=== PATIENT | male | born 1930 | race Caucasian/White ===

== ENCOUNTER 2017-02-11 12:48 | Day surgery (SDC) | payer BC ==
--- NOTE | ~2017-02-11 | CN ---
Consultation Report [id number] [facility] [place]. [address] NAME: SHALOM NORIEGA : 32 STATUS : [facility]#: [id number] AGE: 86 ADM/REG DATE : 02/11/17 MR#: [id number] REPORT SERV DATE: 02/16/17 DICTATED BY: ESAU MCINTYRE DATE: 02/16/17 REPORT STATUS : Draft TRANSCRIBED BY: MODL DATE: 02/16/17 CONSULTATION DATE OF CONSULTATION: Dear Dr. Camacho and Dr. Webb: Thank you for requesting my opinion regarding FDG avid mediastinal lymphadenopathy for Mr. Shalom Noriega. HISTORY OF PRESENT ILLNESS: Mr. Noriega is a pleasant 86-year-old gentleman, with a significant past medical history of COPD, he developed worsening hypoxemia and underwent a CT scan on 11/18/2016, demonstrated a 1.8 cm left upper lobe lung nodule suspicious for carcinoma. He initially underwent a PET-CT scan on 12/09/2016, that demonstrated a maximum SUV of 7.1 in the left upper lobe. No enlarged mediastinal lymph nodes and increased FDG uptake in the left hilum with an SUV of 3.9, and mild uptake in the 4R lymph node, with an SUV of 2.1. No distant metastasis were noted. He had a CT-guided needle biopsy on 01/01/2017, that confirmed moderately differentiated adenocarcinoma. His clinical radiologic and pathologic results were discussed at Multidisciplinary Lung Tumor Conference, Group recommended EBUS bronchoscopy for formal evaluation of the FDG avid mediastinal lymph nodes. The patient states that he is feeling okay, but he feels very hesitant about proceeding with bronchoscopy. He denies any current fevers, chills, night sweats, chest pain, palpitations, nausea, vomiting, diarrhea, or constipation. The patient understandably is struggling since his twin brother recently of lung cancer. ALLERGIES: NO KNOWN DRUG ALLERGIES. HOME MEDICATIONS: Reviewed and located in the paper chart. REVIEW OF SYSTEMS: A detailed 14-point review of systems was completed. Pertinent positives and negatives are listed above. PAST MEDICAL HISTORY: 1. Arthritis. 2. COPD. 3. Coronary artery disease. 4. Type 2 diabetes. 5. Hyperlipidemia. 6. Hypertension. 7. Adenocarcinoma. Consultation Report [address] [id number] [facility] [place]. [address] NAME: SHALOM NORIEGA : 32 STATUS : [facility] PAT#: [id number] AGE: 86 ADM/REG DATE : 02/11/17 MR#: [id number] REPORT SERV DATE: 02/16/17 DICTATED BY: ESAU MCINTYRE DATE: 02/16/17 REPORT STATUS : Draft TRANSCRIBED BY: MILO DATE: 02/16/17 SOCIAL HISTORY: The patient is single and retired. He quit smoking 50 years ago, but smoked one pack per day for 10 years. He is a former drinker. He denies any history of alcohol or illicit drug abuse. FAMILY HISTORY: Kidney failure, lung cancer, and brain cancer. PHYSICAL EXAMINATION: VITAL SIGNS: Reviewed and located in the paper chart. GENERAL: In no acute distress. Able to communicate in full paragraphs at a time. HEENT: Normocephalic and atraumatic. Pupils are equal, round, and reactive to light and accommodation. Posterior oropharynx is clear. NECK: No JVD. No LAD. Trachea midline. CARDIOVASCULAR: Regular rate and rhythm. S1 and S2 present. LUNGS: Coarse bilateral breath sounds. End-expiratory wheezes noted. ABDOMEN: Nontender, nondistended, and soft. Positive bowel sounds. EXTREMITIES: No clubbing, cyanosis, or edema. SKIN: No new rashes, lesions, or ulcers. PSYCHIATRIC: Alert and oriented x3. Appropriate mood and affect. Appropriate insight and judgment. NEUROLOGIC: 5/5 strength in upper and lower extremities. Cranial nerves 2 through 12 are intact. Gait not tested. DTRs not performed. IMAGING PROCEDURE: 1. PET-CT scan on 12/12/2016, was personally reviewed by me and I agree with the following interpretation. FDG avid left upper lobe lung nodule. 2. Asymmetric focal FDG uptake in the left hilar 10L right mediastinal and 4R lymph nodes. ASSESSMENT AND PLAN: Mr. Shalom Noriega is an extremely pleasant 86-year-old gentleman, with a significant past medical history of chronic obstructive pulmonary disease, prior tobacco abuse, and recently diagnosed left upper lobe adenocarcinoma, CT-guided needle biopsy, whose case was discussed at Multidisciplinary Lung Tumor Conference. The patient's PET-CT demonstrated asymmetric focal FDG uptake in the left hilar 10L mediastinal lymph node and right mediastinal lymph nodes, particularly at 4R lymph node station. The clinical and radiographic presentation is suspicious for local regional metastatic disease. At this point, Mr. Noriega was recommended EBUS bronchoscopy. We discussed the potential risks of EBUS bronchoscopy including lung collapse, life-threatening bleeding, respiratory failure, and even . The patient is concerned with anesthesia, bronchoscopic biopsy, and his recent of his brother, has reasons not to proceed forward with EBUS bronchoscopy. He also voiced concerns about potentially pursuing further treatment with chemo and radiation therapy. Mr. Shalom Noriega formally declined EBUS bronchoscopy and this has been discussed with Dr. Webb. Consultation Report [address] [id number] NAME: SHALOM NORIEGA : 32 STATUS : [facility]#: [id number] AGE: 86 ADM/REG DATE : 02/11/17 MR#: [id number] REPORT SERV DATE: 02/16/17 DICTATED BY: ESAU MCINTYRE DATE: 02/16/17 REPORT STATUS : Draft TRANSCRIBED BY: MODL DATE: 02/16/17 RECOMMENDATIONS: A summary of my recommendations are as follows: 1. The patient declined EBUS bronchoscopy. 2. Follow up with Dr. Camahco and Dr. Webb. Thank you for allowing me to participate in Mr. Shalom Noriega' care. JOAQUIN/JAYLENEL Esau Mcintyre M.D. / [id number] CC: Crystal Barrios M.D. Benjamin R Nadeau, MD Hisham F. Qutob, MD
[~2017-02-11 12:48] MED LIST: ALEVE220 MG PO; AMB5 PO; AMIT10 PO; ASAB PO; B 12 PO; B6 FOLIC ACD OR; B6 FOLIC ACD PO; BEN25 PO; CARDU2 PO; CELEXA20 PO; CYANO1000T PO; DIABETA5 PO; EFFEXOR100 MG PO; FISH OIL300 MG PO; FLEXERIL5 MG PO; FLOMAX4 PO; GLUCOPHAGE1000 MG PO; IBUPROFEN; IMDUR30 PO; IMOD PO; ISOSORB DIN30 MG PO; JANUVIA50 PO; L20 PO; L40 PO; LIPITOR20 PO; LISINOPRIL40 MG PO; LOM PO; LOP50 PO; LORTAB 5 PO; LYRICA75 PO; MOBIC7.5 PO; MULTIPLE VIT PO; NEUR300 PO; NORV10 PO; NTG150 SL; OMNICEF300 PO; PEPTO BISMOL LIQ1 ML PO; PROAIR HFA INH; PROBIOTIC PO; PROCERA PO; PROTONIX PO; Potassium OR; RELA5 PO; ROXICODONE15 MG PO; STARLIX120 PO; TRIAVIL 2/25 TA1 TAB OR; TYLENOL ARTH650 MG PO; ULTRAM50 PO; VIT B-SIX 50 MG50 MG OR; WELCHOL 625 MG625 MG PO; X5 PO; ZOCOR40 PO; [UNRECOGNIZED DRUG - OTHER] PO; [UNRECOGNIZED DRUG - OTHER] PO; [UNRECOGNIZED DRUG - OTHER] PO
[2017-02-11 13:23] LABS: BASOPHILS 0.3 %; BASOPHILS ABSOLUTE 0.02 10/3/uL (0.0-0.16); EOSINOPHILS 1.3 %; IMMATURE GRANULOCYTES 0.1 %; IMMATURE GRANULOCYTES ABSOLUTE 0.01 10/3/uL (0.0-0.11); LYMPHOCYTES 34.7 %; MEAN CORPUS HGB CONC 33.3 g/dL (32.0-36.0); MEAN CORPUSCULAR HEMOGLOB 31.6 pg (26.0-34.0); MEAN CORPUSCULAR VOLUME 94.9 fL (80-100); MEAN PLATELET VOLUME 10.3 fL (9.2-13.0); MONOCYTES 7.5 %; MONOCYTES ABSOLUTE 0.56 10/3/uL (0.21-1.20); NEUTROPHILS 56.1 %; PLATELET COUNT 263 10/3/uL (150-400); RBC DISTRIBUTION WIDTH 13.6 % (12.0-16.0); RED CELL COUNT 4.11 10/6/uL (4.7-6.1); WHITE BLOOD CELLS 7.5 10/3/uL (4.5-10.5)
[2017-02-11 13:24] LABS: MANUAL DIFF NO %
[2017-02-11 13:30] LABS: BUN (BLOOD UREA NITROGEN) 19 MG/DL (6-23); CALCIUM, SERUM 8.8 MG/DL (8.5-10.4); CHLORIDE, SERUM 100 MMOL/L (96-112); CO2 (CARBON DIOXIDE) 33 MMOL/L (24-34); CREATININE 1.06 MG/DL (0.70-1.30); GFR AFRICAN AMERICAN 74 ML/MIN (>=60); GFR NON AFRICAN AMERICAN 64 ML/MIN (>=60); GLUCOSE, SERUM 151 MG/DL (60-99); POTASSIUM, SERUM 4.8 MMOL/L (3.5-5.3); SODIUM, SERUM 141 MMOL/L (135-148)
[2017-02-11 13:31] LABS: PARTIAL THROMBO TIME 29.2 SEC (22.5-37.2); PROTIME (NOT ORD) 12.8 SEC (12.0-14.5)
== END 2017-02-11 23:59 | disposition home or self-care (01) ==
LOC: DMU 12:48
PROVIDERS: Anesthesiology; Internal Medicine
DX: C34.12 Malignant neoplasm of upper lobe, left bronchus or lung (principal); J44.9 Chronic obstructive pulmonary disease, unspecified; J96.90 Respiratory failure, unspecified, unspecified whether with hypoxia or hypercapnia; M19.90 Unspecified osteoarthritis, unspecified site; I25.10 Atherosclerotic heart disease of native coronary artery without angina pectoris; E11.9 Type 2 diabetes mellitus without complications; E78.5 Hyperlipidemia, unspecified; I10 Essential (primary) hypertension; G89.29 Other chronic pain; K21.9 Gastro-esophageal reflux disease without esophagitis; E78.00 Pure hypercholesterolemia, unspecified; I25.2 Old myocardial infarction; F41.9 Anxiety disorder, unspecified; F32.9 Major depressive disorder, single episode, unspecified; Z53.9 Procedure and treatment not carried out, unspecified reason; Z95.5 Presence of coronary angioplasty implant and graft; Z87.442 Personal history of urinary calculi; Z90.49 Acquired absence of other specified parts of digestive tract; Z98.890 Other specified postprocedural states
CPT/HCPCS: 80048; 85025; 85610; 85730; 93005; A9270-GY

== ENCOUNTER 2017-02-16 11:01 | Emergency (ER) | payer BC | END 2017-02-16 11:30 | disposition home or self-care (01) | LOC: ER 11:01 | DX: M25.551 Pain in right hip (principal); J44.9 Chronic obstructive pulmonary disease, unspecified; I10 Essential (primary) hypertension; E11.9 Type 2 diabetes mellitus without complications; Z85.118 Personal history of other malignant neoplasm of bronchus and lung; Z95.1 Presence of aortocoronary bypass graft; Z90.49 Acquired absence of other specified parts of digestive tract; Z79.84 Long term (current) use of oral hypoglycemic drugs; Z79.82 Long term (current) use of aspirin; Z79.899 Other long term (current) drug therapy | CPT/HCPCS: 96372; 99283; A9270-GY; J2800 ==